=== PATIENT | female | born 1945 | race Caucasian/White ===

== ENCOUNTER → 2023-07-19 13:04 | Outpatient (REF) | payer MEDICARE, SELFPAY | LOC: RAD 13:04 | PROVIDERS: ATTENDING PHYSICIAN Surgery Vascular Surgery; FAMILY PHYSICIAN Family Medicine | DX: I77.1 Stricture of artery (principal); I65.23 Occlusion and stenosis of bilateral carotid arteries | CPT/HCPCS: 93880; 93923; 93930 ==

== ENCOUNTER → 2024-08-11 08:56 | Outpatient (REF) | payer OTHER, SELFPAY | LOC: DHVS 08:56 | PROVIDERS: ATTENDING PHYSICIAN Registered Nurse | DX: I65.23 Occlusion and stenosis of bilateral carotid arteries (principal); I77.1 Stricture of artery | CPT/HCPCS: 93880; 93923; 93930 ==